=== PATIENT | female | born 1990 | race Caucasian/White ===

== ENCOUNTER → 2017-11-16 14:36 | Outpatient (CLI) | payer MEDICAID, SELFPAY ==
--- NOTE | 2017-11-16 14:39 | US_ITS ---
US OB transvaginal HISTORY: Evaluate gestational age and dates ITS.REASON: DATES ORDERING PHYSICIAN: Otoniel Jade MD PATIENT AGE: 27 years COMPARISON: None FINDINGS: An intrauterine gestational sac is present with a pole with a crown-rump length of 2.31cm correlating to gestational age of 9 weeks 1 day. Estimated due date by ultrasound is 06/20/2018. heart tones are present with an FHR of 186 bpm's. Yolk sac is noted. The amnion and chorion have not yet fused. Adnexa: Unremarkable. IMPRESSION: Live intrauterine gestation at 9 weeks 1 day with an estimated due date of 06/20/2018
== END ==
PROVIDERS: Family Provider Emergency Medicine; PCP Emergency Medicine; Visit Provider Nurse Practitioner Obstetrics & Gynecology
DX: O26.841 Uterine size-date discrepancy, first trimester (principal)
CPT/HCPCS: 76830

== ENCOUNTER → 2018-02-21 14:06 | Outpatient (CLI) | payer MEDICAID, SELFPAY ==
--- NOTE | 2018-02-21 14:09 | US_ITS ---
US OB /maternal detail: INDICATION: ITS.REASON: US OB Complete 20wk Anatomy Scan ORDERING PHYSICIAN: Otoniel Jade MD PATIENT AGE: 27 years TECHNIQUE: ultrasound transabdominal scanning. COMPARISON: No previous relevant studies. FINDINGS: Single viable intrauterine gestation. Ended in Breech position. Placenta: Fundal with anterior posterior component placenta grade 1. There is average amount fluid. The cervix appears satisfactory. Closed and measuring 5 cm in length. Complete survey performed and was unremarkable on the submitted images as in PACS. No discrete anomalies identified on survey imaging by technologist. Active fetus. Three-vessel cord with satisfactory umbilical cord insertion. 4- chamber heart noted. Survey of brain & ventricles unremarkable. Face and neck survey unremarkable. Diaphragm and chest views unremarkable. Abdomen: Both kidneys noted and unremarkable. Stomach noted and satisfactory. Spine: Difficult to image secondary to the disposition. Grossly negative. Both arms and legs noted. Amniotic Fluid: Adequate. Maternal adnexa: No significant findings. Measurements: Average ultrasound age 23w0d. Gestational Age 23w0d. Estimated due date by ultrasound age 0906/20/2018. Estimated weight 573 grams. 53 percentile BPD = 23w0d OFD = 23w0d HC = 22w3d AC = 24w2d FL = 22w2d Heart Rate = 135 Cerebellum = 22w1d Humerus = 22w4d HC/AC is 1.04 (1.05-1.21). CI is 77% (70-86%). FL/BPD is 69% (71%-87%). FL/AC is 20% (20-24%). IMPRESSION: There is a single live fetus with average ultrasound age of 23 weeks 0 days that ended in breech presentation. The fetus is active with no obvious anomalies. Please see above for detail.
== END ==
PROVIDERS: Family Provider Emergency Medicine; PCP Emergency Medicine; Visit Provider Nurse Practitioner Obstetrics & Gynecology
DX: Z36.0 Encounter for antenatal screening for chromosomal anomalies (principal)
CPT/HCPCS: 76811

== ENCOUNTER 2018-04-01 19:31 | Outpatient (CLI) | payer MEDICAID, SELFPAY ==
[2018-04-01 19:53] VITALS: BMI 24.7
[2018-04-01 20:00] VITALS: BP 112/70; PULSE 88; RESP 20; TEMP 36.6; O2SAT 98; BMI 24.7
[2018-04-01 20:47] LABS: Microscopic, Urine URINE MICROSCOPIC (MICROSCOPIC)
[2018-04-01 20:48] LABS: Fetal Fibronectin (Rapid) Negative (Negative)
[2018-04-01 20:51] LABS: Appearance,Urine TURBID (Clear); Bilirubin,Urine Negative (Negative); Blood, Urine Negative (Negative); Color,Urine YELLOW (Yellow); Glucose,Urine (UA) Negative (Negative); Ketones,Urine 2+ (Negative); Leukocyte Esterase,Urine Negative (Negative); Nitrate,Urine Negative (Negative); Protein,Urine Negative (Negative); Specific Gravity, Urine 1.015 (1.005-1.030); Urobilinogen,Urine 0.2 EU/dl (0.2)
[2018-04-01 21:02] LABS: Bacteria,Urine 1+ /lpf
[2018-04-01 21:03] LABS: Amphetamine/Metha Screen,Urine Negative ng/mL (<1000); Barbiturates Screen,Urine Negative ng/mL (<200); Benzodiazepines Screen,Urine Negative ng/mL (200); Cannabinoid Screen,Urine Positive ng/mL (<50); Cocaine Screen,Urine Negative ng/g (<300); Methadone Screen,Urine Negative ng/mL (<300); Opiate Screen,Urine Positive ng/mL (<300); Phencyclidine Screen,Urine Negative ng/mL (<25)
== END 2018-04-01 21:08 | disposition left against medical advice (07) ==
LOC: OBOUT 19:34 → OB 19:34
PROVIDERS: PCP Nurse Practitioner Obstetrics & Gynecology; Visit Provider Nurse Practitioner Obstetrics & Gynecology
DX: O26.92 Pregnancy related conditions, unspecified, second trimester (principal); Z3A.28 28 weeks gestation of pregnancy; M54.5 Low back pain
CPT/HCPCS: 59025; 80305; 81001; 82731

== ENCOUNTER 2020-07-14 13:23 | Emergency (ER) | payer MEDICAID, SELFPAY ==
[2020-07-14 13:27] VITALS: BP 137/81; PULSE 101; RESP 18; TEMP 36.9; O2SAT 100; BMI 24.0
--- NOTE | 2020-07-14 14:04 | HMH.EDUTC ---
[facility] [place] Clinical Impression: Viral syndrome Pharyngitis Qualifiers: Pharyngitis/tonsillitis etiology: unspecified etiology Qualified Code(s): J02.9 - Acute pharyngitis, unspecified Disposition: Home, Self-Care Condition on Discharge: Good Instructions: DI for Pharyngitis/Tonsillopharyngitis -- Adult, DI for Viral Syndrome Additional Instructions: Drink plenty of fluids. Take tylenol or ibuprofen for pain or fever. Take the medications as directed. Follow up with your regular doctor. GO TO THE ER FOR ANY WORSENING SYMPTOMS FOLLOW THE DIRECTIONS ON THE COVID-19 HAND OUT THAT WE GAVE YOU REGARDING SELF-ISOLATION UNTIL YOU KNOW YOUR COVID-19 RESULTS Prescriptions: Azithromycin [Z-Ford 250mg Tab*] 250 mg PO UD DOSE PK #6 tab Transmission Status: Received by [facility] #[id number] Referrals: PCP,No [Primary Care Provider] - Time of Disposition: 14:09 Medical Decision Making - Medical Records Medical records reviewed: No: I reviewed the patient's medical records. - [place] Inquiry Pt receiving controlled substance: No Vital Signs: 07/14/20 13:27 07/14/20 14:22 Temperature 98.4 F 98.4 F Temperature Source Oral Pulse Rate 101 H Pulse Rate [Right Radial] 101 H Respiratory Rate 18 18 Blood Pressure 137/81 Blood Pressure [Right Arm] 137/81 Blood Pressure Mean [Right Arm] 99 Blood Pressure Source [Right Arm] Automatic Cuff Blood Pressure Position Sitting Blood Pressure Position [Right Arm] Sitting 02 Sat by Pulse Oximetry 100 Oxygen Delivery Method Room Air Room Air - Lab Data Lab results reviewed: Yes: I reviewed the patient's lab results. Lab Results 07/14/20 13:28: Strep Scn Rapid Clinic Negative Orders (Tests/Meds): ORDERS Category Date Time Status Strep Screen Confirmation Stat Micro 07/14/20 13:28 Received [facility] [place] - General Stated complaint: sore throat, body aches Time Seen by Provider: 07/14/20 14:05 Mode of Arrival: Ambulatory Source of Information: Patient Limitations: No Limitations Description of Symptoms (Recalled from Triage Doc. by RN): pt reports cough, runny nose, sore throat and body aches x1 week. HEENT Symptoms (Recalled from RN notes): Yes (pt reports sore throat, runny nose) Resp Symptoms (Recalled from RN notes): Yes (reports cough) Skin Symptoms (Recalled from RN notes): No MS Symptoms (Recalled from RN notes): Yes (pt reports body aches) Functional Status (Recalled from RN notes): n/a - History of Present Illness Provider Complaint: She c/o 3 days of sore throat and feeling bad. She denies any known exposure to COVID-19. - Related Data Previous Rx's Medication Instructions Recorded Azithromycin [Z-Ford 250mg Tab*] 250 mg PO UD DOSE PK #6 tab 07/14/20 Allergies Allergy/AdvReac Type Severity Reaction Status Date / Time amoxicillin [AMOXICILLIN] Allergy Intermediate I-HIVES Verified 07/24/18 18:34 - Worker's Comp Is this a Worker's Comp case?: No [facility] History - Hepatitis A Screen Drug use history?: No High risk sexual behaviors?: No History of sexually transmitted infection?: No Currently employed?: No Childcare worker?: No Do you have indoor plumbing?: Yes Do you have electricity?: Yes Attestation statement:: This patient has been screened for Hepatitis A risk factors. I have reviewed the patient's past medical history: Yes Medical History: Denies:: Diabetes Mellitus Type 1, Diabetes Mellitus Type 2 Other Surgeries: Yes: No Previous Surgery. No: - Social History Smoking Status: Current every day smoker Tobacco Type: cigarettes # Packs/Day (cigarettes): 1 Alcohol Intake: never Occupational Status: other Housing: house Household Members: family Family Hx:: Coronary Artery Disease, Cancer, Diabetes ROS Obtained: Yes All systems reviewed & no additional complaints - Constitutional Constitutional: Denies chills, Denies fever(s) - ENT Ears, Nose, Mouth, and Throat: Denies
[2020-07-14 14:22] VITALS: BP 137/81; PULSE 101; RESP 18; TEMP 36.9; O2SAT 100
[2020-07-15 11:55] LABS: UTC Strep Screen (Rapid) Negative (Negative)
[2020-07-15 20:24] LABS: UTC Influenza A Antigen Negative (Negative); UTC Influenza B Antigen Negative (Negative)
== END 2020-07-14 14:22 | disposition home or self-care (01) ==
PROVIDERS: Emergency Provider Nurse Practitioner Family
DX: B34.9 Viral infection, unspecified (principal); F17.210 Nicotine dependence, cigarettes, uncomplicated; Z20.828 Contact with and (suspected) exposure to other viral communicable diseases
CPT/HCPCS: 87804; 87880; 99202; U0003